=== PATIENT | female | born 1995 | race African-American/Black ===

== ENCOUNTER 2022-10-17 10:59 | Outpatient (CLI) | payer BC, SELFPAY ==
--- NOTE | ~2022-10-17 | US_ITS ---
EXAMINATION: US OB transvaginal DATE: 10/17/2022 11:27 INDICATION: Uncertain gestational dates TECHNIQUE: Real-time transabdominal and transvaginal obstetric ultrasound. FINDINGS: No prior studies for comparison. The uterus measures 11.2 x 7.9 x 8.9 cm. There is an intrauterine gestational sac, with pole id entified. The crown rump length measures 2.8 cm, which correlates with a estimated gestational age o f 9 weeks 4 days. heart tones are identified measuring 167 BPM. There is a small subchorionic hemorrhage measuring 2 x 0.5 x 0.6 cm. Uterus is retroverted. Ovaries are not visualized. IMPRESSION: 1. SL IUP with an EGA of 9 weeks, 4 days (EDC by current ultrasound of 05/18/2023). 2: Small subchorionic hemorrhage. Reviewed, dictated and finalized at location B. IMPRESSION: 1. SL IUP with an EGA of 9 weeks, 4 days (EDC by current ultrasound of 05/18/20). 2: Small subchorionic hemorrhage.
== END 2022-10-17 11:00 ==
LOC: MICIMG 11:01
PROVIDERS: Visit Provider Advanced Practice Midwife
DX: O36.80X0 Pregnancy with inconclusive fetal viability, not applicable or unspecified (principal); Z3A.09 9 weeks gestation of pregnancy
CPT/HCPCS: 76817

== ENCOUNTER 2022-11-21 13:17 | Outpatient (CLI) | payer BC, SELFPAY ==
--- NOTE | ~2022-11-21 | US_ITS ---
EXAMINATION: US OB limited DATE: 11/21/2022 13:32 INDICATION: Subchorionic hematoma, first trimester TECHNIQUE: Real-time ultrasound of the pelvis was performed. The interpreting radiologist was not pre sent for the study. COMPARISON: 10/17/2022 FINDINGS: The uterus measures 15.2 x 10.7 x 11.0 cm. Cervical length is 3.2 cm. The placenta is poste riorly. No persistent subchorionic hematoma is identified. cardiac activity and movement are noted. heart rate is 155 beats per minute (bpm). The amniotic fluid index is subjectively n ormal. IMPRESSION: 1. No subchorionic hematoma identified. Reviewed, dictated and finalized at location []
== END 2022-11-21 13:18 ==
LOC: MICIMG 13:18
PROVIDERS: PCP Advanced Practice Midwife; Visit Provider Advanced Practice Midwife
DX: O36.8910 Maternal care for other specified fetal problems, first trimester, not applicable or unspecified (principal); Z3A.00 Weeks of gestation of pregnancy not specified
CPT/HCPCS: 76815

== ENCOUNTER 2022-12-22 13:56 | Outpatient (CLI) | payer BC, OTHER, SELFPAY ==
--- NOTE | ~2022-12-22 | US_ITS ---
EXAMINATION: US OB /maternal detail DATE: 12/22/2022 16:01 INDICATION: survey TECHNIQUE: Multiple obstetric sonographic images performed. FINDINGS: Ultrasound dated 11/21/2022 There is a single living fetus in vertex presentation. The placenta is posterior without placenta pr evia. Placental margin to the cervix is 2.8 cm. Amniotic fluid volume is subjectively normal. cardiac activity and movement is noted with a heart rate of 178 beats per minute. The following anatomy was identified as normal: 3 vessel cord cord insertion kidneys urinary bladder stomach spine diaphragm ventricles cisterna magna cerebellum 4 chamber heart not adequately visualized. The following biometric data were obtained: BPD: 43mm corresponds to gestational age 19 weeks 0 days. Head circumference: 162 mm corresponds to gestational age 19 weeks 0 days. Abdominal circumference: 132 mm corresponds to gestational age 18 weeks 5 days. Femur length: 30 mm corresponds to gestational age 19 weeks 2 days. Head circumference to abdominal circumference ratio: 1.22 (normal range for expected gestational age is 1.09-1.26). Estimated weight: 269 grams +/- 40 grams using Hadlock method, 46%. IMPRESSION: 1: Single living intrauterine with an estimated gestational age of 19weeks 0days by current ultrasound measurements, with an EDC of 05/18/2023 in vertex presentation. 2. survey limited for evaluation of four-chamber heart. Otherwise, survey is unremarkable. Rec ommend follow-up ultrasound as clinically indicated. 3: Low-lying posterior placenta measures 2.8 cm to the cervix. Reviewed, dictated and finalized at location A. IMPRESSION: 1: Single living intrauterine with an estimated gestational age of 19 weeks 0days by current ultrasound measurements, with an EDC of 05/18/2023 in ve rtex presentation. 2. survey limited for evaluation of four-chamber heart. Otherwise, surve y is unremarkable. Recommend follow-up ultrasound as clinically indicated. 3: Low-lying posterior placenta measures 2.8 cm to the cervix.
== END 2022-12-22 13:57 | disposition home or self-care (01) ==
PROVIDERS: PCP Advanced Practice Midwife; Visit Provider Advanced Practice Midwife
DX: Z36.9 Encounter for antenatal screening, unspecified (principal); O44.42 Low lying placenta NOS or without hemorrhage, second trimester; Z3A.19 19 weeks gestation of pregnancy
CPT/HCPCS: 76805

== ENCOUNTER 2023-02-16 15:02 | Outpatient (CLI) | payer BC, OTHER, SELFPAY ==
--- NOTE | ~2023-02-16 | US_ITS ---
EXAMINATION: US OB follow up DATE: 02/16/2023 15:47 INDICATION: Limited evaluation of four-chamber heart on prior survey TECHNIQUE: Real-time transabdominal obstetric ultrasound. FINDINGS: Comparison to multiple prior studies sequentially, with oldest reviewed study dated 023. There is a single living fetus in vertex presentation. The placenta is posterior/fundal without plac enta previa. cardiac activity and movement is visualized with normal four-chamber heart visualized dur ing the examination. The amniotic fluid volume is subjectively normal.. The following biometric data were obtained: BPD: 65mm corresponds to gestational age 26 weeks 1 days. Head circumference: 253mm corresponds to gestational age 27 weeks 4 days. Abdominal circumference: 227mm corresponds to gestational age 27 weeks 1 days. Femur length: 52mm corresponds to gestational age 27 weeks 5 days. Estimated weight: 1056grams +/- 158grams, 50.2%. IMPRESSION: 1. Single living intrauterine in vertex presentation with an estimated gestational age of 27 weeks 0 days by inititial ultrasound. Appropriate interval growth. 2. Normal four-chamber heart. Reviewed, dictated and finalized at location A. IMPRESSION: 1. Single living intrauterine in vertex presentation with an estimat ed gestational age of 27 weeks 0 days by inititial ultrasound. Appropriate int erval growth. 2. Normal four-chamber heart.
== END 2023-02-16 15:03 | disposition home or self-care (01) ==
PROVIDERS: PCP Advanced Practice Midwife; Visit Provider Obstetrics & Gynecology Gynecology
DX: Z36.2 Encounter for other antenatal screening follow-up (principal); Z3A.00 Weeks of gestation of pregnancy not specified
CPT/HCPCS: 76816

== ENCOUNTER 2023-04-15 12:49 | Outpatient (CLI) | payer BC, SELFPAY ==
[2023-04-15 14:08] LABS: Hematocrit 32.3 % (37.0-47.0); Hemoglobin 10.2 g/dL (12.0-15.0)
[2023-04-15 14:25] LABS: Glucose 1 Hour PP 50gm Dose 134 mg/dL
[2023-04-15 15:05] LABS: HIV 1/2 Ab P24 Ag Result Negative (Negative)
== END 2023-04-15 12:50 | disposition home or self-care (01) ==
PROVIDERS: PCP Advanced Practice Midwife; Visit Provider Obstetrics & Gynecology Gynecology
DX: Z34.93 Encounter for supervision of normal pregnancy, unspecified, third trimester (principal); Z3A.00 Weeks of gestation of pregnancy not specified
CPT/HCPCS: 36415; 82306; 82947; 85014; 85018; 86703; G0432

== ENCOUNTER 2023-04-21 08:56 | Outpatient (CLI) | payer BC, SELFPAY ==
[2023-04-21 09:33] LABS: Hemoglobin 10.8 g/dL (12.0-15.0)
[2023-04-21 09:46] LABS: Glucose Fasting Gestational 134 mg/dL (>/=95)
== END 2023-04-21 08:57 | disposition home or self-care (01) ==
LOC: ANHLAB 09:00
PROVIDERS: Visit Provider Obstetrics & Gynecology Gynecology
DX: O24.419 Gestational diabetes mellitus in pregnancy, unspecified control (principal); Z3A.00 Weeks of gestation of pregnancy not specified; R71.0 Precipitous drop in hematocrit
CPT/HCPCS: 36415; 82951; 82952; 85014; 85018

== ENCOUNTER 2023-04-24 09:07 | Outpatient (CLI) | payer BC, SELFPAY ==
[2023-04-24 09:39] LABS: Hematocrit 34.4 % (37.0-47.0); Hemoglobin 10.9 g/dL (12.0-15.0)
[2023-04-24 09:49] LABS: Glucose Fasting Gestational 80 mg/dL (>/=95)
[2023-04-24 11:32] LABS: Glucose 1 Hour Gest 137 mg/dL (>/=180)
[2023-04-24 12:19] LABS: Glucose 2 Hour Gest 118 mg/dL (>/= 155)
[2023-04-24 13:19] LABS: Glucose 3 Hour Gest 79 mg/dL (>/=140)
== END 2023-04-24 09:08 | disposition home or self-care (01) ==
PROVIDERS: Visit Provider Nurse Practitioner
DX: R71.0 Precipitous drop in hematocrit (principal)
CPT/HCPCS: 36415; 82951; 82952; 85014; 85018

== ENCOUNTER 2023-05-16 09:34 | Inpatient (IN) | payer BC, OTHER, MEDICAID, SELFPAY ==
[2023-05-16] VITALS (11 sets, daily range): BP systolic 109–157; BP diastolic 62–127; PULSE 73–97; RESP 16–18; TEMP 36.4–36.7; O2SAT 100
[2023-05-16] MEDS: OXYTOCIN 30 UNITS/NS 500 ML 30 UNITS/500 ML BAG 999 UNITS IV CONT (09:50)
[2023-05-16] MEDS: KETOROLAC 30 MG/ML VIAL (*BKC) (10:03)
--- NOTE | 2023-05-16 10:05 | WPDOBADMIT ---
Obstetrics - Admit Note Admission Note: record reviewed. No pertinent additions to the history and/or any subsequent changes in the physical findings that are not consistent with the expected course of the were found. Additions to the history and/or subsequent changes in the physical findings follow. Pt arrived via EMS after home delivery of infant and placenta. Per EMS scores 10/10
--- NOTE | 2023-05-16 10:06 | PM.OBPRVD ---
OB - Vaginal Delivery Note Procedure Delivery date: 05/16/23 Events: Positive Group B Strep (GBS) Delivery monitor: None Route of delivery: Episiotomy description: None Laceration Description: Periurethral (bilateral superficial) Specimen: Yes Anesthesia type: None Disposition: Floor Narrative: Patient arrived via EMS after unplanned home delivery of her infant and placenta. CNM called and arrived to bedside. Patient states that she had mild contractions overnight which increased in intensity abruptly at home. She called 911. EMS personnel arrived. She delivered a viable female infant in her bed. At some point, EMS delivered the placenta. Pt arrived to unit in stable condition. CNM inspected the perineum and vagina. Two superficial periurethral lacerations are noted but are hemostatic not requiring repair. Her fundus is firm and there was excellent hemostasis. Pitocin started via IV. Plan to admit patient for routine care. The placenta was inspected and light meconium staining was noted on part of the membranes. the cord insertion is midline. An accessory lobe is also noted but the placenta otherwise appears to be intact. [place] [facility] Date of : 05/16/23 Time of : 08:47 Weeks of gestation at delivery: 39 Infant gender: Female Weight (pounds): 6 Weight (ounces): 15 presentation: vertex (per EMS) Placenta delivery description: Spontaneous (per EMS. ), Abnormal Configuration and Delivered Out of Hospital Cord Vessel Description: 3 Vessels score one minute: 10 (per EMS) score five minutes: 10 (per EMS)
--- NOTE | 2023-05-16 10:13 | PM.OBDSVD ---
DS: Admitting Diagnosis Discharge Date 05/18/2023. DC by Dr. Ordonez Admitting Diagnosis 27 y.o. at 39 weeks 5 days. Unplanned at home GBS positive. DS: Discharge Diagnosis Discharge Diagnosis (1) (normal spontaneous vaginal delivery): Code(s): O80 - Encounter for full-term uncomplicated delivery Status: Acute (2) Positive GBS test: Code(s): B95.1 - Streptococcus, group B, as the cause of diseases classified elsewhere Status: Acute (3) Mother currently breast-feeding: Code(s): Z39.1 - Encounter for care and examination of lactating mother Status: Acute OB - DS: Summary Hospital Course Hospital Course: Uncomplicated OB Procedures : Ultrasound OB Procedures Intrapartum: Spontaneous Vag Delivery OB Procedures: : None Peripartum Data Delivery Method: Natural Vaginal (unplanned home ) Laceration Description: Periurethral (bilateral superficial) Episiotomy description: None complications: none Time Spent with Patient Time attestation: Total time spent providing and/or coordinating discharge services: Discharge Plan Discharge Attending physician on discharge: Tana Ordonez Consulting providers: Lizbeth Padilla Discharging Clinician: Lizbeth Padilla Anticipated Discharge Date/Time: 05/18/23 10:17 Patient Disposition: Home, Self-Care Activity: may shower and pelvic rest Diet: as tolerated and regular Wound Care Instructions: follow printed instructions Discharge Instructions: Education: Mom and Baby Guide Given to: Mother Follow-Up: Call your delivering provider's office for an appointment to be seen in: 6 Weeks Mom and baby should come to the [facility] for the follow-up appointment. Appointment Date/Time: May 19, 2023 at 10:00 am What to expect at your follow-up visit: Blood Pressure Check Physical Assessment Call [phone] if you are unable to keep your appointment time. BREAST CARE: * Wear a snug supportive bra. * For engorgement discomfort: Breast Feeding: * Apply warm moist washcloths * Express milk as needed to relieve engorgement * Wear loose clothing * For sore nipples: * Identify correct latch-on * Apply warm moist washcloths before and after nursing * Air dry nipples after nursing * May apply Lansinoh cream to nipples PERINEAL CARE: * Until bleeding stops, use your grabiel bottle after urinating * Change your pad frequently throughout the day * You may take sitz baths several times a day (fill your bathtub with warm water and soak for 20 minutes.) Do NOT bathe in the water * No tub baths until seen by your physician - You may shower ACTIVITY: * Rest as much as possible. * Do not exercise or lift anything heavier than your baby (such as laundry or other children.) * Avoid stairs or driving as much as possible. * Do not put anything into the vagina. No douching, tampons, or sexual activity until seen by physician. NOTIFY PHYSICIAN IF YOU HAVE ANY QUESTIONS OR IF ANY OF THE FOLLOWING SYMPTOMS OCCUR: * If your vaginal bleeding becomes foul smelling. * If your vaginal bleeding becomes more heavy than a period or if your bleeding changes from pink to bright red. However, you may pass an occasional walnut-sized clot once or twice for the first week . * If you experience a sharp, shooting pain in your calves. * If you discover a hard, reddened area on your breast or if you experience flu-like symptoms. DIET: * Eat regular, well-balanced meals. * Drink plenty of fluids daily. If , drink to thirst. Continue taking your vitamin and any other supplements as previously directed (Examples: Iron, Vitamin D). You may take Tylenol 1000mg over the counter every 6 hours as needed for pain. Do not exceed 4000mg of Tylenol daily. You may continue using tucks pads and dermoplast s
[2023-05-16 10:33] LABS: Basophils Percent Auto 0.2 % (0.2-1.2); Hematocrit 34.2 % (37.0-47.0); Immature Granulocyte Absolute 0.07 K/mm3 (0.00-0.031); Immature Granulocyte Percent A 1.3 % (0-0.5); Lymphocytes Absolute Auto 1.11 K/mm3 (0.9-3.2); Lymphocytes Percent Auto 20.3 % (18.3-44.2); Mean Corpuscular HGB Conc 32.2 g/dl (32-36); Mean Corpuscular Hemoglobin 29.5 pg (26-34); Mean Corpuscular Volume 91.7 fl (80-100); Mean Platelet Volume 12.1 fl (7.4-10.4); Monocytes Absolute Auto 0.4 K/mm3 (0.1-0.6); Neutrophils Absolute Auto 3.8 K/mm3 (1.3-6.7); Neutrophils Percent Auto 70.2 % (45.5-73.1); Platelet Count Result 143 k/mm3 (150-375); Red Blood Count 3.73 M/mm3 (4.2-5.4); Red Cell Distribution Width 14.2 % (11.5-14.5); White Blood Count 5.5 K/mm3 (4.5-10.0)
--- NOTE | 2023-05-16 11:39 | LDADM ---
This patient, Jayne Parker, was admitted to Labor/Delivery/Recovery 108 on 05/16/23 at 09:34. Plans for labor, pain management and were discussed with patient. Patient/family oriented to hospital policies and general routines including ID bracelet, bed and alarms, visiting hours, pain management, procedures, bathroom and other care routines, personal items, smoking policy, room service/diet and guest tray routines, security routines, and visiting hours. Patient/Family are encouraged to report perceived risks to care and to ask questions if they do not understand what they are told or what they should do. See [facility] for further documentation.
--- NOTE | 2023-05-16 13:47 | OBPPTRN ---
1255 Patient transferred to post room #281 via W/C. Support person present. Oriented to unit, room, information board, rooming in, admission packet and security measures. Patient verbalizes understanding.
[2023-05-16 13:49] LABS: Amphetamine Screen Urine Negative (Negative); Barbiturate Screen Urine Negative (Negative); Benzodiazepines Screen Urine Negative (Negative); Cannabinoid Screen Urine Negative (Negative); Cocaine Screen Urine Negative (Negative); Methadone Screen Urine Negative (Negative); Opiate Screen Urine Negative (Negative); Phencyclidine Screen Urine Negative (Negative)
[2023-05-16 14:37] LABS: Rapid Plasma Reagin Non-Reactive (NonReactive)
[2023-05-16] MEDS: IBUPROFEN 600 MG TABLET PO (17:51)
[2023-05-16] MEDS: ACETAMINOPHEN 325 MG TABLET 650 MG PO (22:05)
[2023-05-17 06:04] LABS: Hematocrit 33.1 % (37.0-47.0); Hemoglobin 10.4 g/dL (12.0-15.0)
--- NOTE | 2023-05-17 07:55 | PM.OBPNVD ---
OB - PN: Subj Subjective Date/time seen: 05/17/23 07:45 Interval history: Doing well. Urinating without difficulty. Denies passing any large clots. Denies dizziness with ambulating. Tolerating po food and fluids. Bonding with . Denies MALDONADO, visual changes, RUQ pain. Patient comments: no complaints and pain well controlled baby status: doing well and nursing well feeding status: exclusively breast feeding OB - PN: Obj Data Labs 05/17/23 04:12 Labs: Laboratory Results - last 24 hr 05/16/23 05/17/23 10:26 04:12 WBC 5.5 RBC 3.73 L Hgb 11.0 L 10.4 L Hct 34.2 L 33.1 L MCV 91.7 MCH 29.5 MCHC 32.2 RDW 14.2 Plt Count 143 L MPV 12.1 H Immature Gran % (Auto) 1.3 H Neut % (Auto) 70.2 Lymph % (Auto) 20.3 [place] % (Auto) 8.0 Eos % (Auto) 0.0 Baso % (Auto) 0.2 Lymph # (Auto) 1.11 [place] # (Auto) 0.4 Eos # (Auto) 0.0 Baso # (Auto) 0.0 Abs Immat Gran (auto) 0.07 H Absolute Neuts (auto) 3.8 Absolute Nucleated RBC 0.0 Nucleated RBC % 0.0 Urine Opiates Screen Negative Urine Methadone Screen Negative Ur Barbiturates Screen Negative Ur Phencyclidine Scrn Negative Ur Amphetamine Screen Negative U Benzodiazepines Scrn Negative Urine Cocaine Screen Negative U Cannabinoids Screen Negative RPR Non-reactive Blood Type A Positive Antibody Screen Negative OB - PN A/P Plan day: 1 Plan: routine care Comments: Most recent BP 140/91, if repeat mild range plan to send CMP. No s/sx of preeclampsia otherwise. Desires DC home. Discussed GBS+ status and lack of antibiotics. Will plan for DC home tomorrow. Time Spent With Patient Time: Total time spent is greater than 50% in coordination of care (as documented) at patient's floor/unit and/or counseling patient: Review of Systems Review of Systems: All systems reviewed & are unremarkable except as noted in HPI and below Exam Narrative: Alert and oriented. Mood is pleasant and cooperative. Perineum with minimal edema. Fundus firm and below umbilicus. Const: General: cooperative, healthy appearing, no acute distress and alert Orientation/consciousness: patient oriented x3 Limitations: no limitations Resp: Effort & Inspection: normal respiratory effort and able to speak in complete sentences Auscultation: clear to auscultation bilaterally Cardio: Rate: regular rate GI: Inspection: normal to inspection Auscultation: normal bowel sounds : General: Yes bladder normal to palpation External Female Exam: other (lochia WNL) Bimanual exam- vagina & uterus: bladder normal to palpation Other: Fundus firm and below U Skin: General skin exam: normal color and no rashes or lesions noted Neuro: General: patient oriented x3 and moves all extremities Cognition (Neuro): normal cognition Extrem: General: normal to inspection and no calf tenderness Psych: Appearance: grossly normal Mental Status: mental status grossly normal Affect: normal affect Thought process: Normal thought process present
[2023-05-17 08:53] VITALS: BP 140/91; PULSE 77; RESP 20; TEMP 36.6; O2SAT 98
[2023-05-17] MEDS: IBUPROFEN 600 MG TABLET PO ×2 (11:05→21:06)
[2023-05-17] MEDS: DOCUSATE SODIUM 100 MG CAPSULE PO (11:05)
[2023-05-17] MEDS: MULTIVIT/MIN/PREN/FOL AC/IRON TABLET 1 TAB PO (11:05)
--- NOTE | 2023-05-17 15:34 | PC.NURSE ---
[id number] Introduction were made and Mother verbalizes she is able to independently latch with appropriate positioning and alignment. She denies any nipple discomfort and is responsively infant on the left breast using cross cradle positioning without pain or nipple misshaping. Infant is currently meeting outcomes for weight, output, jaundice, blood sugar and feeding frequencies of 8-12 times in 24 hours. Mother declines any additional assistance or education at this time with exception to getting an insurance pump and flange fitted. Mother is encouraged to call for assistance if her doesn?t latch, pain with latching, questions or concerns. Mother voiced understanding of information shared along with the mom/baby guide for an additional resource. [phone] Instructions given on cleaning, care, usage, that there should be no pain, pumping schedule for milk production, collection, and storage of human milk using the Medela pump covered by her insurance. Patient was assessed for correct placement, flange size (30mm), to pump for comfort and nipple stretching/stimulation for adequate milk production every 3 hours (8 times in 24 hours) 1-2 times at night. Mother is waiting to start pumping at home. Mother voiced understanding of the education shared along with mom/baby guide and the pump measurement, flange fit handout (Medela)for additional resource information. Reported to the Primary RN.
[2023-05-17 21:00] VITALS: BP 120/78; PULSE 75; RESP 18; TEMP 36.6; O2SAT 100
[2023-05-18] VITALS: BP 117/79; PULSE 86; RESP 16; TEMP 37; O2SAT 100
--- NOTE | 2023-05-18 07:50 | PM.OBPNVD ---
OB - PN: Subj Subjective Date/time seen: 05/18/23 07:50 Patient comments: no complaints and pain well controlled baby status: doing well and nursing well OB - PN: Obj Data Labs 05/17/23 04:12 OB - PN A/P Plan day: 2 Plan: routine care, discharge home, follow up 6 weeks and other (plans POP for control) Time Spent With Patient Time: Total time spent is greater than 50% in coordination of care (as documented) at patient's floor/unit and/or counseling patient: Exam : Bimanual exam- vagina & uterus: other (Uterus firm, nt @U)
[2023-05-18 09:00] VITALS: BP 117/84; PULSE 74; RESP 20; TEMP 36.7; O2SAT 100
[2023-05-18] MEDS: MULTIVIT/MIN/PREN/FOL AC/IRON TABLET 1 TAB PO (09:27)
[2023-05-18] MEDS: IBUPROFEN 600 MG TABLET PO (11:36)
[2023-05-18] MEDS: DOCUSATE SODIUM 100 MG CAPSULE PO (11:36)
[2023-05-19 10:23] VITALS: BP 129/62; PULSE 76; RESP 18; TEMP 37.1; O2SAT 100
== END 2023-05-18 12:02 | disposition home or self-care (01) | DRG 776 ==
LOC: ANHLDR 10:18 → ANHOB2 12:56
PROVIDERS: Advanced Practice Midwife; Admitting Provider Obstetrics & Gynecology Gynecology; Visit Provider Obstetrics & Gynecology Gynecology
DX: O71.82 Other specified trauma to perineum and vulva (principal); O99.825 Streptococcus B carrier state complicating the puerperium
CPT/HCPCS: 36415; 80307; 85014; 85018; 85025; 86592; 86850; 86900; 86901; 88307; A9270; J1885; J2590